=== PATIENT | male | born 1955 | race Caucasian/White ===

== ENCOUNTER → 2025-03-15 | Outpatient (REF) | payer OTHER ==
[~2025-03-15] MED LIST: COUMADIN; LIDOCAINE HCL 1% 30ML-PF VIAL ONE
== END ==
LOC: US 12:00
PROVIDERS: ATTEND Family Medicine
DX: E04.1 Nontoxic single thyroid nodule (principal)
CPT/HCPCS: 10005; 88172; 88173; J2003